=== PATIENT | male | born 1985 | race Caucasian/White ===

== ENCOUNTER 2021-02-05 20:21 | Emergency (ER) | payer SELFPAY ==
--- NOTE | 2021-02-05 23:19 | EDPHYS ---
Physician Documentation [facility] Name: Vu Hu Age: 35 yrs Sex: Male : 1985 Arrival Date: 02/05/2021 Time: 20:24 Bed DIS1 Private MD: ED Physician Adi Alba HPI: 02/05 23:16 This 35 yrs old Male presents to ER via Ambulatory with complaints of ma2 Allergic Reaction. 23:16 The patient presents with rash, redness of skin. Onset: The symptoms/episode ma2 began/occurred gradually, 1 day(s) ago. Associated signs and symptoms: Pertinent positives: hives, rash, Pertinent negatives: abdominal pain, chest pain, dysphagia, fever, headache, Light headed nausea, shortness of breath, swelling, Syncope vomiting. Possible causes: Severity of symptoms: At their worst the symptoms were very mild in the emergency department the symptoms have improved. The patient has experienced similar episodes in the past. Historical: - Allergies: 21:09 No Known Allergies; vg1 - Home Meds: 21:09 None [Active]; vg1 - PMHx: 21:09 None; vg1 - PSHx: 21:09 None; vg1 - Immunization history:: Adult Immunizations up to date, Client reports having NOT received the Covid vaccine. - Social history:: Smoking status: Reported history of juuling and/or vaping. - Family history:: not pertinent. ROS: 23:16 Constitutional: Negative for fever, chills, and weight loss. ma2 23:16 All other systems are negative. Exam: 23:16 Constitutional: This is a well developed, well nourished patient who is awake, alert, ma2 and in no acute distress. Head/Face: Normocephalic, atraumatic. Eyes: Pupils equal round and reactive to light, extra-ocular motions intact. Lids and lashes normal. Conjunctiva and sclera are non-icteric and not injected. Cornea within normal limits. Periorbital areas with no swelling, redness, or edema. ENT: Nares patent. No nasal discharge, no septal abnormalities noted. Tympanic membranes are normal and external auditory canals are clear. Oropharynx with no redness, swelling, or masses, exudates, or evidence of obstruction, uvula midline. Mucous membranes moist. Neck: Trachea midline, no thyromegaly or masses palpated, and no cervical lymphadenopathy. Supple, full range of motion without nuchal rigidity, or vertebral point tenderness. No Meningismus. Chest/axilla: Normal chest wall appearance and motion. Nontender with no deformity. No lesions are appreciated. Cardiovascular: Regular rate and rhythm with a normal S1 and S2. No gallops, murmurs, or rubs. Normal PMI, no JVD. No pulse deficits. Respiratory: Lungs have equal breath sounds bilaterally, clear to auscultation and percussion. No rales, rhonchi or wheezes noted. No increased work of breathing, no retractions or nasal flaring. Abdomen/GI: Soft, non-tender, with normal bowel sounds. No distension or tympany. No guarding or rebound. No evidence of tenderness throughout. Back: No spinal tenderness. No costovertebral tenderness. Full range of motion. Skin: Diffuse hives, otherwise warm, dry with normal turgor. Normal color with no rashes, no lesions, and no evidence of cellulitis. MS/ Extremity: Pulses equal, no cyanosis. Neurovascular intact. Full, normal range of motion. Neuro: Awake and alert, GCS 15, oriented to person, place, time, and situation. Cranial nerves II-XII grossly intact. Motor strength 5/5 in all extremities. Sensory grossly intact. Cerebellar exam normal. Normal gait. Vital Signs: 21:06 BP 153 / 98; Pulse 84; Resp 18; Temp 98.3; Pulse Ox 100% ; Weight 90.72 kg; Height 6 vg1 ft. 0 in. (182.88 cm); Pain 0/10; 23:33 BP 134 / 94; Pulse 87; Resp 20; Pulse Ox 99% on R/A; kg 21:06 Body Mass Index 27.12 (90.72 kg, 182.88 cm) vg1 MDM: 22:43 Patient medically screened. ma2 23:16 Differential diagnosis: Carcinoid Mastocystosis non IgE mediated drug reaction ma2 urticaria, Vasovagal Reactions. Data reviewed: vital signs, nurses notes. Counseling: I had a detailed discussion with the patient and/or guardian regarding: the historical points, exam findings, and any diagnostic results supporting the discharge/admit diagnosis, the presence of at least one elevated blood pressure reading (>120/80) during this emergency department visit, the need for outpatient follow up. Response to treatment: the patient's symptoms have markedly improved after treatment. Administered Medications: 23:13 Drug: Benadryl (diphenhydrAMINE) 50 mg Route: IM; Site: left deltoid; kg 23:26 Follow up: Response: No adverse reaction kg 23:13 Drug: MethylPREDNISolone Sodium Succinate 125 mg Route: IM; Site: right deltoid; kg 23:26 Follow up: Response: No adverse reaction kg Disposition Summary: 02/05/21 23:18 Discharge Ordered Location: Home ma2 Condition: Stable ma2 Diagnosis - Rash and other nonspecific skin eruption ma2 Followup: ma2 - With: Private Physician - When: Tomorrow - Reason: Continuance of care Discharge Instructions: - Discharge Summary Sheet ma2 - Hives ma2 - Rash, Adult, [id number] ma2 Forms: - Medication Reconciliation Form ma2 - Thank You Letter ma2 - Antibiotic Education ma2 - Prescription Opioid Use ma2 Prescriptions: - Benadryl 25 mg Oral Capsule - take 1 capsule by ORAL route every 6 hours As needed; 30 tablet; Refills: 0, ma2 Product Selection Permitted - Medrol (Jose Carlos) 4 mg Oral Tablets, Dose Pack - take 1 tablet by ORAL route as directed - follow package instructions; 1 ma2 packet; Refills: 0, Product Selection Permitted - Pepcid 20 mg Oral Tablet - take 1 tablet by ORAL route once daily for 10 days; 10 tablet; Refills: 0, ma2 Product Selection Permitted Signatures: Adi Alba MD MD ma2 Galilea Bates RN RN vg1 Lorena Flynn RN RN kg
--- NOTE | 2021-02-05 23:19 | ER ---
Nurse's Notes [facility] Name: Vu Hu Age: 35 yrs Sex: Male : 1985 Arrival Date: 02/05/2021 Time: 20:24 Bed DIS1 Private MD: Diagnosis: Rash and other nonspecific skin eruption Presentation: 02/05 21:06 Chief complaint: Patient states: Pt was exposed to poison tesfaye, was cutting some tress vg1 and jazmín yesterday. States its on KIM legs, KIM arms and groin area; states itchiness. Denies difficulty breathing, shortness of breath or throat soreness. Coronavirus screen: Vaccine status: Patient reports being unvaccinated. Ebola Screen: Patient negative for fever greater than or equal to 101.5 degrees Fahrenheit, and additional compatible Ebola Virus Disease symptoms. Onset: The symptoms/episode began/occurred acutely. Anaphylaxis evaluation, no signs or symptoms of anaphylaxis were noted. Initial Sepsis Screen: Does the patient meet any 2 criteria? No. Patient's initial sepsis screen is negative. Does the patient have a suspected source of infection? No. Patient's initial sepsis screen is negative. Risk Assessment: Do you want to hurt yourself or someone else? Patient reports no desire to harm self or others. Onset of symptoms was February 04, 2021. 21:06 Method Of Arrival: Ambulatory 1 21:06 Acuity: ANGEL 4 vg1 Triage Assessment: 21:09 General: Appears in no apparent distress. comfortable, Behavior is calm, cooperative. vg1 Pain: Denies pain. Historical: - Allergies: 21:09 No Known Allergies; vg1 - Home Meds: 21:09 None [Active]; vg1 - PMHx: 21:09 None; vg1 - PSHx: 21:09 None; vg1 - Immunization history:: Adult Immunizations up to date, Client reports having NOT received the Covid vaccine. - Social history:: Smoking status: Reported history of juuling and/or vaping. - Family history:: not pertinent. Screenin:59 Abuse screen: Denies threats or abuse. Denies injuries from another. Nutritional kg screening: No deficits noted. Tuberculosis screening: No symptoms or risk factors identified. Fall Risk None identified. Assessment: 22:58 General: Appears in no apparent distress. Behavior is calm, cooperative, appropriate kg for age, quiet. Pain: Complains of pain in Generalized Quality of pain is described as itching. Respiratory: No deficits noted. Airway is patent Respiratory effort is even, unlabored, relaxed, Respiratory pattern is regular, symmetrical, Breath sounds are clear bilaterally. Derm: Rash noted that is itchy, red, raised. Vital Signs: 21:06 BP 153 / 98; Pulse 84; Resp 18; Temp 98.3; Pulse Ox 100% ; Weight 90.72 kg; Height 6 vg1 ft. 0 in. (182.88 cm); Pain 0/10; 23:33 BP 134 / 94; Pulse 87; Resp 20; Pulse Ox 99% on R/A; kg 21:06 Body Mass Index 27.12 (90.72 kg, 182.88 cm) vg1 ED Course: 20:24 Patient arrived in ED. wm 21:09 Triage completed. vg1 21:09 Arm band placed on. vg1 22:30 Lorena Flynn RN is Primary Nurse. kg 22:43 Adi Alba MD is Attending Physician. ma2 22:59 Patient has correct armband on for positive identification. kg 22:59 No provider procedures requiring assistance completed. Patient did not have IV access kg during this emergency room visit. Administered Medications: 23:13 Drug: Benadryl (diphenhydrAMINE) 50 mg Route: IM; Site: left deltoid; kg 23:26 Follow up: Response: No adverse reaction kg 23:13 Drug: MethylPREDNISolone Sodium Succinate 125 mg Route: IM; Site: right deltoid; kg 23:26 Follow up: Response: No adverse reaction kg Outcome: 23:18 Discharge ordered by . ma2 23:34 Discharged to home ambulatory. kg 23:34 Condition: good 23:34 Discharge instructions given to patient, Instructed on discharge instructions, follow up and referral plans. Demonstrated understanding of instructions, follow-up care, medications, Prescriptions given X 2. 23:34 Patient left the ED. kg Signatures: Adi Alba MD MD ok2 Galilea Bates RN RN 1 Lorena Flynn, CLIFFORD RN kg Loreta Rockwell
[2021-02-05] MEDS ORDERED: METHYLPREDNISOLONE 125 MG INJ ONE (23:33)
[2021-02-05] MEDS ORDERED: DIPHENHYDRAMINE 50 MG/ML VIAL ONE (23:33)
[2021-02-05 23:38] VITALS: TEMP 98.3
[2021-02-05 23:40] VITALS: BP 134/94; O2SAT 99
== END 2021-02-05 23:34 | disposition home or self-care (01) ==
LOC: ER 20:21
DX: R21 Rash and other nonspecific skin eruption (principal)
CPT/HCPCS: 96372; 99283; J1200; J2930